=== PATIENT | female | born 1985 | race Caucasian/White ===

== ENCOUNTER → 2016-12-22 | Outpatient (CLI) | payer OTHER ==
[~2016-12-22] VITALS: Ht 154.9 cm; Wt 56.2 kg
[~2016-12-22] MED LIST: ADDERALL XR30 MG PO; ADVAIR; ADVAIR 500/501 DISK; ATARAX,VISTARIL25 MG PO; AVELOX400 MG; BENEFIBER98 GM PO; BUSPAR30 MG PO; CELEXA20 MG PO; CLONAZEPAM0.5 MG; COLACE100 MG PO; DEXTROAMP-AMPHE20 MG PO; ENDOCET 5-3251 EACH PO; ERYTHROMYC1 APPLICAT LEFT EYE; EVENING PRIMRO500 MG PO; FLOVENT 22120 INHALA IH; FOLIC ACID0.4 MG PO; GABAPENTIN300 MG PO; IBUPROFEN800 MG PO; INDOMETHACIN25 MG PO; LILETTA1 EACH IY; MELATONIN; METHYLIN20 MG PO; MOTRIN IB200 MG PO; MOTRIN600 MG PO; NUVARING VAGIN1 EACH VG; OMEPRAZOLE40 M1 PO; PERCOCET 5/31 TABLET PO; PHENERGAN25 MG PR; PREDNISONE20 MG PO; PRENATAL TABLE1 EAC3 PO; PROAIR HFA8.5 GM IH; PROMETHAZINE HC25 M1 PO; PROTONIX40 MG PO; PROVENTIL,2.5 MG/3 M IH; QUETIAPINE FUMA25 MG PO; RELIE EAC PO; SAVELLA50 MG; SEROQ PO; SEROQUEL100 MG PO; TIZANIDINE HCL4 MG; TYLENOL PM1 CAPLET PO; TYLENOL REGULA325 MG PO; ULTRAM50 MG PO; VYVANSE30 MG PO; VYVANSE40 MG PO; WELLBUTRIN XL300 MG PO; ZANTAC150 MG PO; ZOFRAN ODT4 MG PO; ZOFRAN4 MG PO; ZOLOFT25 MG PO; ZOLOFT50 MG PO; [UNRECOGNIZED DRUG - OTHER]
== END | disposition home or self-care (01) ==
LOC: AMB 10:00
DX: R10.9 Unspecified abdominal pain (principal); K29.70 Gastritis, unspecified, without bleeding; R14.0 Abdominal distension (gaseous); R19.7 Diarrhea, unspecified; R63.4 Abnormal weight loss; Z83.79 Family history of other diseases of the digestive system; J45.909 Unspecified asthma, uncomplicated; Z80.49 Family history of malignant neoplasm of other genital organs; Z82.49 Family history of ischemic heart disease and other diseases of the circulatory system; Z83.3 Family history of diabetes mellitus; Z87.891 Personal history of nicotine dependence; Z88.8 Allergy status to other drugs, medicaments and biological substances; Z79.899 Other long term (current) drug therapy
CPT/HCPCS: 88305; 88342 TC; J2250